=== PATIENT | male | born 1965 | race Two or more races ===

== ENCOUNTER 2023-02-28 10:56 | Inpatient (IN) | payer OTHER ==
[2023-02-28 11:40] VITALS: BMI 20.5
[2023-02-28] MEDS ORDERED: MAG HYDROX/AL HYDROX/SIMETH 30 ML UNIT-DOSE CUP PO PRN (15:50)
[2023-02-28] MEDS ORDERED: BENZONATATE 200 MG CAPSULE PO PRN (15:50)
[2023-02-28] MEDS ORDERED: MAGNESIUM HYDROX 2400MG/30ML ORAL SUSPENSION 30 ML CUP PO PRN (15:50)
[2023-02-28] MEDS ORDERED: BISMUTH SUBSALICYLATE 262 MG/15 ML BTL PO PRN (15:50)
[2023-02-28] MEDS ORDERED: DICYCLOMINE HCL 10 MG CAPSULE PO PRN (15:50)
[2023-02-28] MEDS ORDERED: POLYETHYLENE GLYCOL (HEALTHYLAX) 3350 17 GM PACKET PO PRN (15:50)
[2023-02-28] MEDS ORDERED: guaiFENesin 600 MG TABLET.ER (FP) PO PRN (15:50)
[2023-02-28] MEDS ORDERED: LOPERAMIDE HCL 2 MG CAPSULE PO PRN (15:50)
[2023-02-28] MEDS ORDERED: BENZOCAINE/MENTHOL (CHLORASEPTIC ) LOZENGE MM PRN (15:50)
[2023-02-28] MEDS ORDERED: IBUPROFEN 400 MG TABLET (FP) PO PRN (15:50)
[2023-02-28] MEDS ORDERED: ONDANSETRON *ODT* 4 MG TABLET SL PRN (15:50)
[2023-02-28] MEDS ORDERED: NALOXONE HCL (KLOXXADO) 8 MG SPRAY NS PRN (15:50)
[2023-02-28] MEDS ORDERED: P-EPHED 60MG/TRIPROLIDI 2.5MG TABLET PO PRN (15:50)
[2023-02-28] MEDS ORDERED: NALOXONE HCL 0.4 MG/ML VIAL IM PRN (15:50)
[2023-02-28] MEDS: ENALAPRIL MALEATE 10 MG TABLET PO SCH (16:07)
[2023-02-28] MEDS: hydrOXYzine PAMOATE 25 MG CAPSULE (FP) PO PRN (16:07)
[2023-02-28] MEDS ORDERED: hydrOXYzine PAMOATE 25 MG CAPSULE (FP) PO ONE (16:11)
[2023-02-28] MEDS: IBUPROFEN 600 MG TABLET (FP) PO PRN (19:25)
[2023-02-28] MEDS ORDERED: INSULIN (NOVOLOG) ASPART 100 UNITS/ML 10ML VIAL ONE ×2 (20:00→22:19)
[2023-02-28] MEDS: INSULIN SLIDING SCALE (NOVOLOG) 1 VIAL SQ SCH ×2 (20:01→22:18)
[2023-02-28] MEDS: MELATONIN 5 MG TABLETS PO SCH (22:13)
[2023-02-28] MEDS: THIAMINE HCL 100 MG TABLET (FP) PO SCH (22:13)
[2023-02-28] MEDS: ACETAMINOPHEN 325 MG TABLET (FP) PO PRN (22:19)
[2023-03-01] MEDS: INSULIN SLIDING SCALE (NOVOLOG) 1 VIAL SQ SCH ×4 (06:59→22:25)
[2023-03-01] MEDS ORDERED: INSULIN (NOVOLOG) ASPART 100 UNITS/ML 10ML VIAL ONE ×4 (07:00→22:25)
[2023-03-01] MEDS: PRENATAL VITAMINS W/ FOLIC ACID TABLET (FP) PO SCH (09:45)
[2023-03-01] MEDS: ENALAPRIL MALEATE 10 MG TABLET PO SCH (09:48)
[2023-03-01 12:16] LABS: HEMATOCRIT 35.3 % (35.4-49); HEMOGLOBIN 11.9 GM/dL (11.7-16.9); MCH 29.6 pg (25.7-33.7); MCHC 33.8 g/dl (32.0-35.9); MEAN CELL VOLUME 87.6 fl (80-96); MEAN PLT VOLUME 7.7 fl (7.5-11.1); PLATELET COUNT 285 10^3/uL (134-434); RBC 4.03 M/mm3 (4.00-5.60); RDW 13.5 % (11.9-15.9); WHITE BLOOD COUNT 7.4 K/mm3 (4.0-10.0)
[2023-03-01 12:25] LABS: POTASSIUM 3.8 mmol/L (3.5-5.1)
[2023-03-01 12:29] LABS: CALCIUM 8.9 mg/dL (8.5-10.1)
[2023-03-01 12:30] LABS: ALBUMIN 3.4 g/dl (3.4-5.0); BLOOD UREA NITROGEN 26.8 mg/dL (7-18)
[2023-03-01 12:33] LABS: CREATININE 0.8 mg/dL (0.55-1.3)
[2023-03-01 12:34] LABS: BILIRUBIN,TOTAL 0.4 mg/dL (0.2-1)
[2023-03-01] MEDS: IBUPROFEN 600 MG TABLET (FP) PO PRN (17:51)
[2023-03-01] MEDS: ACETAMINOPHEN 325 MG TABLET (FP) PO PRN (20:47)
[2023-03-01] MEDS: METHOCARBAMOL 500 MG TABLET PO PRN (22:17)
[2023-03-01] MEDS: THIAMINE HCL 100 MG TABLET (FP) PO SCH (22:17)
[2023-03-01] MEDS: hydrOXYzine PAMOATE 25 MG CAPSULE (FP) PO PRN (22:17)
[2023-03-01] MEDS: cloNIDine HCL 0.1 MG TABLET PO PRN (22:17)
[2023-03-01] MEDS: MELATONIN 5 MG TABLETS PO SCH (22:18)
[2023-03-02] MEDS: INSULIN SLIDING SCALE (NOVOLOG) 1 VIAL SQ SCH ×4 (06:08→21:47)
[2023-03-02] MEDS: PRENATAL VITAMINS W/ FOLIC ACID TABLET (FP) PO SCH (09:27)
[2023-03-02] MEDS: ENALAPRIL MALEATE 10 MG TABLET PO SCH (09:27)
[2023-03-02] MEDS: IBUPROFEN 600 MG TABLET (FP) PO PRN ×2 (10:38→18:16)
[2023-03-02] MEDS: cloNIDine HCL 0.1 MG TABLET PO PRN (11:30)
[2023-03-02] MEDS ORDERED: INSULIN (NOVOLOG) ASPART 100 UNITS/ML 10ML VIAL ONE ×2 (16:25→21:21)
[2023-03-02] MEDS: METHOCARBAMOL 500 MG TABLET PO PRN (21:49)
[2023-03-02] MEDS: MELATONIN 5 MG TABLETS PO SCH (21:49)
[2023-03-02] MEDS: THIAMINE HCL 100 MG TABLET (FP) PO SCH (21:50)
[2023-03-03] MEDS: ACETAMINOPHEN 325 MG TABLET (FP) PO PRN (01:40)
[2023-03-03] MEDS: INSULIN SLIDING SCALE (NOVOLOG) 1 VIAL SQ SCH ×2 (06:01→11:56)
[2023-03-03 06:37] VITALS: RESP 18
[2023-03-03] MEDS: IBUPROFEN 600 MG TABLET (FP) PO PRN (06:50)
[2023-03-03] MEDS: PRENATAL VITAMINS W/ FOLIC ACID TABLET (FP) PO SCH (09:10)
[2023-03-03] MEDS: ENALAPRIL MALEATE 10 MG TABLET PO SCH (09:10)
[2023-03-03] MEDS: cloNIDine HCL 0.1 MG TABLET PO PRN (09:10)
[2023-03-03 09:15] VITALS: BP 184/114; PULSE 78; TEMP 97.3
[2023-03-03] MEDS ORDERED: INSULIN (NOVOLOG) ASPART 100 UNITS/ML 10ML VIAL ONE (11:49)
== END 2023-03-03 12:06 | disposition home or self-care (01) | DRG 773 ==
LOC: YASAS 10:56 → Y6N 16:32
PROVIDERS: ADMIT Allergy & Immunology; ATTEND Surgery
PROC: HZ2ZZZZ Detoxification Services for Substance Abuse Treatment (ICD-10-PCS; principal; 2023-02-28)
DX: F11.23 Opioid dependence with withdrawal (principal); F17.210 Nicotine dependence, cigarettes, uncomplicated; I10 Essential (primary) hypertension; E11.9 Type 2 diabetes mellitus without complications; R26.89 Other abnormalities of gait and mobility; I69.822 Dysarthria following other cerebrovascular disease
CPT/HCPCS: 36415; 80053; 82962; 85027; 86780; 87635; Q0162